=== PATIENT | female | born 1980 | race Caucasian/White ===

== ENCOUNTER 2019-09-23 12:15 | Day surgery (SDC) | payer OTHER, SELFPAY ==
[2019-09-18 10:39] VITALS: BMI 25.2
[2019-09-23] VITALS (17 sets, daily range): BP systolic 88–131; BP diastolic 49–88; PULSE 72–121; RESP 11–26; TEMP 36.1; O2SAT 93–99; BMI 22.7
--- NOTE | 2019-09-23 | DI.RAD.S_ITS ---
PROCEDURE: XR CERVICAL SPINE 2V OR 3V INDICATIONS: C5-6 ACDF TECHNIQUE: 2 view(s) of the cervical spine were acquired. COMPARISON: [facility], MR, MR CERVICAL SPINE WITHOUT CONTRAST, 06/07/2019, 8:00. [facility], CR, XR CERVICAL SPINE 2 OR 3 VIEWS, 06/30/2019, 14:46. [facility], RF, CERVICAL SPINE INTERLAMINAR, 07/15/2019, 9:10. FINDINGS: Bones: Expected postoperative alignment after anterior cervical discectomy and fusion procedure spanning C5-C6 with interbody disc prosthesis at the C5-6 disc level. Soft tissues: No prevertebral soft tissue swelling. IMPRESSION: Normal alignment established postoperatively. Dictated by: Good Gomez M.D. on 09/23/2019 at 16:55 Approved by: Good Gomez M.D. on 09/23/2019 at 16:56
[2019-09-23] MEDS: LACTATED RINGERS 1,000 ML 42 ML IV ×2 (13:40→18:09)
--- NOTE | 2019-09-23 14:30 | PM.PREOP ---
Pre-operative Note Interval Note History & Physical reviewed/Exam performed by Physician: Yes Changes to H&P: No
[2019-09-23] MEDS: CEFAZOLIN 2 GM/100 ML FROZ.PIGGY IV (15:15)
--- NOTE | 2019-09-23 15:42 | SUR.OPER ---
Supine on padded OR bed, head on pillow, towel between shoulders, arms padded and papood with draw sheet, legs uncrossed, safety belt at thigh, taped from both shoulders to the end to bed.
[2019-09-23] MEDS: BUPIVACAINE 0.25% W/ EPI 30 ML VIAL INJ (16:50)
--- NOTE | 2019-09-23 16:54 | PM.OP.1 ---
Operative Date/Time/Diagnoses Date of procedure: 09/23/19 Time of procedure: 14:54 Pre-op diagnosis: 1. C5-6 spinal stenosis 2. C5-6 spondylosis with radiculopathy Post-op diagnosis: same Procedure & Clinicians Procedure: 1. C5-6 anterior cervical diskectomy and fusion 2. C5-6 anterior interbody cage placement 3. C5-6 anterior instrumentation with plate and screw placement in C5 and C6 vertebrae 4. Utilization of microsurgical technique and operating microscope Same procedure as scheduled: Yes Indications: Patient has been having chronic neck pain and worsening cervical radiculopathy. Patient failed multiple conservative management with worsening pain weakness and numbness in her upper extremity. Patient has been having difficulty performing activity of daily living. After discussing risks benefits of treatment options, patient elected proceed with surgery. Surgeon: Daniela Reynolds Commercial Account Officer: Artur Phillips Click Yes if Unassisted: No Anesthesia Type: General Operative Notes Closure Type: primary Specimen(s): none sent Prosthetic devices, grafts, tissues, transplants, or devices: Globus extend plate, PEEK cage Estimated Blood Loss (mL): 10 Blood products transfused: none Procedure in detail: Patient was seen in the preoperative area. Risks and benefits of the surgery was discussed with the patient. Informed consent was obtained from the patient and placed in the chart. Surgical site was marked. Patient was taken to the operative room. General anesthesia was administered. Prophylactic antibiotic was given to the patient less than 30 min before the incision was made. Patient was placed into a supine position on a radiolucent table. Patient's shoulders were taped down to allow proper C-arm imaging. Anterior cervical area was prepped and draped in a sterile fashion. Time-out was performed at this time. Using lateral C-arm imaging, the level between C5 and C6 was identified and marked on patient's neck. A oblique incision from midline towards medial border of sternocleidomastoid muscle was made. The platysma muscle was incised in line with skin incision. Metzenbaum scissor was used to develop the plane between the medial border of sternocleidomastoid d and the strap muscles medially. The carotid sheath and its contents were identified and protected behind the hand-held retractor during the entire case. The plane between the carotid sheath and strap muscles was developed with Metzenbaum scissors. Dissection was made down to the level of the anterior cervical fascia. Longus colli muscle was incised on the anterior aspect of vertebral bodies bilaterally from C5-C6. Spinal needle was placed into the C5-6 disc space and confirmed with lateral C-arm imaging. Using microsurgical technique and operative microscope, anterior cervical diskectomy was performed at C5-6 level. This was done by removing the disc material, removing the anterior and posterior osteophytes posterior longitudinal ligaments along with performing bilateral foraminotomies at the C5-6 levels. Patient was found to have severe foraminal stenosis. Patient's stenosis was fully decompressed after decompression was completed. After the diskectomy was completed, an anterior interbody cage was obtained. The cage was packed with Bio4l bone grafting material. One cage each along with the bone grafting material was then packed into the interbody space at C5-6 along with an anterior cervical plate. The cervical plate was stabilized to the C5-C6 vertebrae using screws. After confirming placement of the hardware with AP and lateral C-arm imaging, the screws were locked into the plate using the locking mechanism and torque limiting screwdriver. After the hardware was placed and confirmed with AP and lateral C-arm imaging, the wound was irrigated with sterile normal saline. The platysma muscle and the subcutaneous tissue was closed with 2-0 Vicryl. The skin was closed with 4-0 Monocryl and Steri-Strips. Patient tolerated the procedure well. Patient was transferred recovery room in stable condition. There were no complications. Complications: none Post-operative Condition: stable Disposition: same day surgery Plan for aftercare: Discharge to home
[2019-09-23] MEDS: fentaNYL 100 MCG/2 ML INJ IV ×3 (17:19→18:12)
[2019-09-23] MEDS: ONDANSETRON 4 MG/2 ML INJ IV (17:19)
[2019-09-23] MEDS: HYDROMORPHONE 2 MG INJ IV ×3 (17:19→18:08)
[2019-09-23] MEDS: METOCLOPRAMIDE 10 MG/2 ML INJ IV (18:13)
[2019-09-23] MEDS: OXYCODONE/ACETAMINOPHEN 5/325 TABLET 1 TAB PO ×2 (18:13→18:55)
--- NOTE | 2019-09-23 18:47 | SUR.PHASEI ---
Patient states she is feeling some better. Eating pudding and crackers without difficulty. No difficulty swallowing, no SOB. Speaking in full sentences.
--- NOTE | 2019-09-23 19:17 | SUR.PHASEII ---
to bedside. Patient AAO x 3 and appears comfortable. All belongings returned to patient and family.
--- NOTE | 2019-09-23 19:27 | SUR.PHASEII ---
Stable, tolerating juice well, pain improved, no questions from pt/spouse. Stable and very pleasant.
== END 2019-09-23 19:39 | disposition home or self-care (01) ==
LOC: OR 12:19 → AC 12:20
PROVIDERS: PCP Internal Medicine Geriatric Medicine; Referring Provider Orthopaedic Surgery Orthopaedic Surgery of the Spine; Visit Provider Orthopaedic Surgery Orthopaedic Surgery of the Spine
PROC: (CPT 22551; principal; 2019-09-23 14:45)
DX: M48.02 Spinal stenosis, cervical region (principal); M47.22 Other spondylosis with radiculopathy, cervical region
CPT/HCPCS: 22551; 22853; 72040; 76000; C1776; J0690; J1100; J1170; J2250; J2405; J2704; J2765; J3010